=== PATIENT | male | born 1935 | race Caucasian/White ===

== ENCOUNTER → 2020-05-29 | Outpatient (CLI) | payer MEDICARE ==
[2020-05-29 10:18] VITALS: BP 154/67; PULSE 78; RESP 18; TEMP 98.3
--- NOTE | 2020-05-29 10:59 | P.PAINCN ---
History of Present Illness - Reason for Consult Consult date: 05/29/20 - History of Present Illness This is 84 years old male with a chronic history of severe low back pain with radiation to the right lower extremity, started 1 year ago, he denies any initiating event and he reported that the pain interferes with the quality of life and activity of daily livings, is constant and increases with any activity, he denies any motor or sensory deficits, he denies any change in the bowel movements or urination, he denies any fever or night sweats, he had course of oral steroid, and he had short-term benefit, and he tried physical therapy with only minimal benefit. Past Medical History Past Medical History: CVA/TIA, Hearing Disorder / Deafness, Musculoskeletal Disorder Additional Past Medical History / Comment(s): TIA (1999), DDD, PAIN LOWER BACK RADIATES TO RIGHT HIP AND RIGHT LEG., BPH., HEARING AIDS. History of Any Multi-Drug Resistant Organisms: None Reported Past Surgical History: Appendectomy Additional Past Surgical History / Comment(s): LEFT HAND SURGERY, LEILA ROTATOR CUFF SURGERY BILATERAL CATARACTS , CYST REMOVED FROM LEFT FOOT Past Anesthesia/Blood Transfusion Reactions: No Reported Reaction, Motion Sickness Smoking Status: Never smoker - Past Family History Father Family Medical History: Cancer Additional Family Medical History / Comment(s): TESTICULAR CANCER Brother(s) Family Medical History: Cancer Additional Family Medical History / Comment(s): TONGUE CANCER Medications and Allergies Home Medications Medication Instructions Recorded Confirmed Type Clopidogrel [Plavix] 75 mg PO QAM 05/25/14 05/29/20 History Acetaminophen Tab [Tylenol] 1,000 mg pe PO PRN 05/29/20 History Finasteride [Proscar] 5 mg PO DIRECTED 05/29/20 05/29/20 History traMADol HCL [Ultram] 50 mg PO Q4-6H PRN 05/29/20 05/29/20 History Allergies Allergy/AdvReac Type Severity Reaction Status Date / Time No Known Allergies Allergy Verified 05/29/20 10:05 Physical Exam Vitals: Vital Signs Temp Pulse Resp BP Pulse Ox 05/29/20 10:13 98.3 F 78 18 154/67 95 Physical Examinations : -Constitutiona : Cooperative , not in acute distress . -HEENT : nech : supple , no Lymphadenopathy , normal thyroid size . : eyes : no ptosis , no icterus, no photophobia . : ENT : normal of hearing , normal oropharynx , no Thrush . - Respiratory : Chest clear to auscultations Bilaterally , no wheezing , no Rhonchi . - Cardiovascula : regular rate and rhythem , S1 , S2 , no S3 , no S4. - Gastrointestina : abdomen soft no tenderness , bowel sounds , no organomegally . - Genitourinary : Defferred . - neurologic : Cranial nerve II to XII intact , no focal neurological deffecit . -psychatric : alert , oriented X 3 , appropriate affect , intact judgment and insight . -Lymphatic : no Lymphadenopathy . - musculoskeltal : Lumber spine moter stegnth lower extremities ,thigh and legs 5/5 Right side , 5/5 Left side deep tendon reflexes : normal Knee Jerk , normal ankle Jerk lumber facet Loading Test = negative bilaterally Range of motion of the lumbar spine Flexion 30 degrees, extension 10 degrees strait leg raising test = positive at 45 degree Fabere test= negative bilaterally Results Comments: MRI of the lumbar spine= multilevel lumbar bulging disc disease and multilevel lumbar facet arthropathy Assessment and Plan Plan: Assessment and plan=1-lumbar degenerative disc disease. 2-lumbar spondylosis with lumbar facet arthropathy. Patient could benefit from lumbar epidural steroi d injections at L4 5 levels ( right paramedian approach ) Time with Patient: Greater than 30 PQRS Measure Charge Sheet Measure #130: Documentation of Current Meds in Medical Chart: Patient's medications documented in chart Measure #226: Tobacco Use: Screen & Cessation Intervention: Pt not a tobacco user Measure #111: Pneumonia Vaccination: Pneumococcal vaccine NOT administered or previously given Measure #47: Advance Care Plan: Advance care planning discussed & documented, pt chose/unable to give Measure #412: Opioid Treatment Agreement: No documentation of signed opioid treatment agreement Measure #408: Opioid Therapy Follow-up Evaluation: Patient had NO f/u eval minimum every 3 months during opioid therapy Measure #317: Preventitive Care & Scrn High Bld Press & F/U: Pre-hypertensive or hypertensive BP documented, pt will f/u with PCP Measure #128: Body Mass Index (BMI) Screening & Follow-up: BMI documented within normal parameters Measure #131: Pain Assessment & Follow-up: Pain positive & plan documented, Follow-up scheduled Measure #431: Unhealthy Alcohol Use Preventative Care & Scrn: Patient not identified as an unhealthy alcohol user PQRS Narrative: Smoking Status Never smoker Blood Pressure 154/67 Pain Intensity [Lower Back] 8 Scale Used Numeric (1 - 10) Home Medications: Ambulatory Orders Clopidogrel [Plavix] 75 mg PO QAM 05/25/14 Acetaminophen Tab [Tylenol] 1,000 mg pe PO PRN 05/29/20 Finasteride [Proscar] 5 mg PO DIRECTED 05/29/20 traMADol HCL [Ultram] 50 mg PO Q4-6H PRN 05/29/20
== END | disposition home or self-care (01) ==
LOC: PNWHC3 10:03
PROVIDERS: ATTEND Specialist
DX: M51.36 Other intervertebral disc degeneration, lumbar region (principal); M47.816 Spondylosis without myelopathy or radiculopathy, lumbar region; M46.96 Unspecified inflammatory spondylopathy, lumbar region; Z79.899 Other long term (current) drug therapy
CPT/HCPCS: 99211

== ENCOUNTER → 2020-07-09 | Day surgery (SDC) | payer MEDICARE ==
[2020-07-08 11:09] VITALS: BMI 24.5
[~2020-07-09] MED LIST: IOPAMIDOL M200 10 ML VIAL ONE; IV FLUID CONTINUATION 1,000 ML IV ONE; LACTATED RINGERS 1,000 ML IV SCH; MIDAZOLAM 2 MG/2 ML VIAL ONE; fentaNYL (PF) 50 MCG/ML 2 ML AMP ONE; methylPREDNISolone ACETATE 40 MG/ML 1 ML VIAL ONE
[2020-07-09 13:41] VITALS: TEMP 97.4
--- NOTE | 2020-07-09 13:58 | P.PCN ---
Date of Procedure: 07/09/20 Description of Procedure: PREOPERATIVE DIAGNOSIS: 1- Lumbar Degenerative Disc Diseases 2-Lumbar spondylosis with Facet arthropathy without myelopathy POSTOPERATIVE DIAGNOSIS: 1-Lumber Degenerative Disc Diseases 2-Lumbar spondylosis with Facet arthropathy without myelopathy PROCEDURE 1. Lumbar epidural steroid injection under fluoroscopic guidance at the L4-5 level. (Fluoroscopy imaging was available in radiology department) 2. Lumbar epidurogram. ANESTHESIA: Local with 1% lidocaine 3 ml and , moderate sedation with intravenous Versed 1 mg ,and fentanyle 50 Mcg sedation time 11 minutes EBL: Minimal PROCEDURE INDICATION: The patient with low back pain and radiculitis symptoms unresponsive to conservative treatment. Fluoroscopy was used to optimize visualization of the needle placement and to maximize safety. PROCEDURE DESCRIPTION / TECHNIQUE: The patient was seen and identified in the preoperative area. Risks, benefits, complications including but not limited to infections ,bleeding ,allergic reaction to the medications ,nerve damage and not complete pain releife , and alternatives were discussed with the patient. The patient agreed to proceed with the procedure and signed the consent. IV was started, and vital signs were stable. Patient was taken to the OR and time out was completed. The patient was placed in the prone position on procedure table and a pillow was placed under the abdomen to reduce lumbar lordosis. The lumbosacral area was prepped and draped in the usual sterile fashion.ere closely monitored during the procedure. Conscious sedation was used during the procedure to decrease patients anxiety. Vital signs was monitered during the entire procedure. Using anterior-posterior fluoroscopy, the L4-5 interlaminar space was identified and the skin over this site was marked and then infiltrated with 1% lidocaine subcutaneously. Subsequently, a 20-gauge Tuohy epidural needle was inserted and advanced toward the epidural space using the ``Loss of resistance technique and guided by AP and lateral fluoroscopy. The correct needle position in the epidural space was verified with the injection of 2 mL of the water soluble contrast dye Isovue 200 contrast and observing an excellent epidurogram with the epidural spread of the dye, after negative aspiration for blood and CSF and in the absence of paresthesias. Again after negative aspiration, a 6 ml mixture containing 40 mg of Depo-medrol , and 2 ml of preservative free Normal Saline, and 2 ml of preservative free lidocaine 1% solution was injected and a washout of epidurogram was seen. Needle was withdrawn intact, skin was cleansed, and bandages were applied. COMPLICATIONS: None DISPOSITION / PLANS: The patient was placed in a supine position and transferred to the recovery area in a stable condition for observation. There was no evidence of lower extremity motor or sensory deficit after the procedure. Patient was discharged from the recovery room after meeting discharge criteria. Home discharge instructions were given to the patient by the staff. The patient was reexamined prior to discharge. The patient will schedule a follow up in the clinic in 2-4 weeks. Last dose of Plavix was 1 week ago, patient will resume his Plavix tonight.
[2020-07-09 14:12] VITALS: RESP 18
[2020-07-09 14:23] VITALS: BP 126/79; PULSE 82
--- NOTE | 2020-07-11 07:02 | FL ---
EXAMINATION TYPE: FL guided pain mgmt statistic DATE OF EXAM: 07/09/2020 CLINICAL HISTORY: Low back pain. TECHNIQUE: Fluoroscopy. COMPARISON: None. FINDINGS: Fluoroscopic guidance was provided during pain relief procedure performed by Dr. Bernal . A total of 25 seconds of fluoroscopic time was utilized during the procedure and 1 spot images are acquired. Single image acquired shows needle localization with contrast injection roughly L4 level. IMPRESSION: As Above.
== END ==
LOC: ORPAIN 13:22
PROVIDERS: ATTEND Anesthesiology
DX: M51.16 Intervertebral disc disorders with radiculopathy, lumbar region (principal); M47.26 Other spondylosis with radiculopathy, lumbar region; Z79.02 Long term (current) use of antithrombotics/antiplatelets
CPT/HCPCS: 62323; J2250; J1030; J3010; Q9966; 99152

== ENCOUNTER 2021-05-08 16:09 | Emergency (ER) | payer MEDICARE ==
[2021-05-08 16:18] VITALS: BP 116/78; RESP 18; TEMP 98.1
[2021-05-08 17:41] LABS: Basophils # (A) 0.1 k/uL (0-0.2); Basophils % (A) 1 %; Eosinophils # (A) 0.3 k/uL (0-0.7); Eosinophils % (A) 4 %; HCT 45.1 % (39.0-53.0); HGB 15.2 gm/dL (13.0-17.5); Lymphocytes # (A) 2.3 k/uL (1.0-4.8); Lymphocytes % (A) 34 %; MCHC 33.8 g/dL (31.0-37.0); MCV 94.9 fL (80.0-100.0); Mean Platelet Volume 7.3; Monocytes # (A) 0.3 k/uL (0-1.0); Monocytes % (A) 5 %; Neutrophils # (A) 3.6 k/uL (1.3-7.7); Neutrophils % (A) 54 %; Platelet Count 185 k/uL (150-450); RBC 4.76 m/uL (4.30-5.90); RDW 12.5 % (11.5-15.5); WBC 6.6 k/uL (3.8-10.6)
[2021-05-08 17:50] LABS: Partial Thromboplastin Time 25.2 sec (22.0-30.0); Prothrombin Time 10.4 sec (9.0-12.0)
[2021-05-08 17:54] LABS: ALT 16 U/L (4-49); AST 28 U/L (17-59); African American GFR (CKD) >90 (>60 ml/min/1.73 sqM); Albumin 3.9 g/dL (3.5-5.0); Alkaline Phosphatase 65 U/L (38-126); Anion Gap 8 mmol/L; Blood Urea Nitrogen 20 mg/dL (9-20); Carbon Dioxide 25 mmol/L (22-30); Chloride 107 mmol/L (98-107); Glucose 95 mg/dL (74-99); Non-African American GFR(CKD) 84 (>60 ml/min/1.73 sqM); Potassium 4.3 mmol/L (3.5-5.1); Sodium 140 mmol/L (137-145); Total Bilirubin 0.3 mg/dL (0.2-1.3); Total Protein 6.7 g/dL (6.3-8.2)
--- NOTE | 2021-05-08 17:55 | ED ---
General Adult HPI - General Chief complaint: Neuro Symptoms/Deficit Stated complaint: possible stroke, sent from Time Seen by Provider: 05/08/21 16:46 Source: patient Mode of arrival: wheelchair Limitations: no limitations - History of Present Illness Initial comments: 85-year-old male with past history of CVA, low back pain presents emergency Department with acute visual disturbance. He states that he was watching TV last night when he had sudden onset of blindness. He describes it stating that it felt as if a curtain over his eyes. He lost vision in both eyes. States it only lasts about 10 seconds before it spontaneously resolved. No history of similar episodes in the past. He denies any numbness or weakness in his extremities. He had no speech difficulties. No confusion from the patient. Denies any head trauma. No headaches, fevers or chills. No associated nausea or vomiting. No chest pain or shortness of breath. He is not on any blood thinners. No other alleviating, precipitating modifying factors - Related Data Home Medications Medication Instructions Recorded Confirmed Clopidogrel [Plavix] 75 mg PO QAM 05/25/14 05/08/21 Finasteride [Proscar] 5 mg PO Q48H 05/29/20 05/08/21 Allergies Allergy/AdvReac Type Severity Reaction Status Date / Time No Known Allergies Allergy Verified 05/08/21 19:03 Review of Systems ROS Statement: Those systems with pertinent positive or pertinent negative responses have been documented in the HPI. ROS Other: All systems not noted in ROS Statement are negative. Past Medical History Past Medical History: CVA/TIA, Hearing Disorder / Deafness, Musculoskeletal Disorder Additional Past Medical History / Comment(s): TIA (1999), DDD, PAIN LOWER BACK RADIATES TO RIGHT HIP AND RIGHT LEG., BPH., HEARING AIDS. History of Any Multi-Drug Resistant Organisms: None Reported Past Surgical History: Appendectomy, Orthopedic Surgery Additional Past Surgical History / Comment(s): LEFT HAND SURGERY, LEILA ROTATOR CUFF SURGERY, BILATERAL CATARACTS , GANGLION CYST REMOVED FROM LEFT FOOT, EYE STRABISMUS CORRECTION Past Anesthesia/Blood Transfusion Reactions: No Reported Reaction, Motion S ickness Past Psychological History: No Psychological Hx Reported Smoking Status: Never smoker Past Alcohol Use History: None Reported Past Drug Use History: None Reported - Past Family History Father Family Medical History: Cancer Additional Family Medical History / Comment(s): TESTICULAR CANCER Brother(s) Family Medical History: Cancer Additional Family Medical History / Comment(s): TONGUE CANCER General Exam Limitations: no limitations General appearance: alert, in no apparent distress Head exam: Present: atraumatic, normocephalic, normal inspection Eye exam: Present: normal appearance, PERRL, EOMI. Absent: scleral icterus, conjunctival injection, periorbital swelling ENT exam: Present: normal exam, mucous membranes moist Neck exam: Present: normal inspection. Absent: tenderness, meningismus, lymphadenopathy Respiratory exam: Present: normal lung sounds bilaterally. Absent: respiratory distress, wheezes, rales, rhonchi, stridor Cardiovascular Exam: Present: regular rate, normal rhythm, normal heart sounds. Absent: systolic murmur, diastolic murmur, rubs, gallop, clicks GI/Abdominal exam: Present: soft, normal bowel sounds. Absent: distended, tenderness, guarding, rebound, rigid Extremities exam: Present: normal inspection, full ROM, normal capillary refill. Absent: tenderness, pedal edema, joint swelling, calf tenderness Back exam: Present: normal inspection Neurological exam: Present: alert, oriented X3, CN II-XII intact Psychiatric exam: Present: normal affect, normal mood Skin exam: Present: warm, dry, intact, normal color. Absent: rash Course Vital Signs 05/08/21 05/08/21 16:14 19:59 Temperature 98.1 F Pulse Rate 65 58 L Respiratory 18 18 Rate Blood Pressure 116/78 O2 Sat by Pulse 98 98 Oximetry EKG Findings - EKG Comments: EKG Findings:: EKG demonstrates a sinus rhythm with ventricular rate of 62. OR interval 172. QRS 84. QTC of 424. No acute ST segment elevations or depressions concerning for ischemic changes or infarction Medical Decision Making - Medical Decision Making Upon arrival patient is placed into room 20. A thorough history and physical exam is performed. Patient's neuro exam is negative at this time. NIH is 0. Laboratory studies were conducted and the patient went for a CT of her brain. CT angiography is also performed. Laboratory studies are unremarkable. CT of the brain demonstrates no acute intracranial process. CT angiography demonstrates no critical stenosis or dissection. Results are discussed with the patient. I did discuss diagnosis and treatment options. I did recommend hospital admission for neurology consultation and possible MRI however the patient refuses. Daughter is at bedside and agrees to his decision. Patient with follow-up with his primary care physician next week. Return to the emergency department for any new or worsening symptoms. Patient agreed to this and he was discharged home in stable condition - Lab Data Result diagrams: 05/08/21 17:18 05/08/21 17:18 Lab Results 05/08/21 05/08/21 05/08/21 Range/Units 17:18 17:18 17:18 WBC 6.6 (3.8-10.6) k/uL RBC 4.76 (4.30-5.90) m/uL Hgb 15.2 (13.0-17.5) gm/dL Hct 45.1 (39.0-53.0) % MCV 94.9 (80.0-100.0) fL MCH 32.0 (25.0-35.0) pg MCHC 33.8 (31.0-37.0) g/dL RDW 12.5 (11.5-15.5) % Plt Count 185 (150-450) k/uL MPV 7.3 Neutrophils % 54 % Lymphocytes % 34 % Monocytes % 5 % Eosinophils % 4 % Basophils % 1 % Neutrophils # 3.6 (1.3-7.7) k/uL Lymphocytes # 2.3 (1.0-4.8) k/uL Monocytes # 0.3 (0-1.0) k/uL Eosinophils # 0.3 (0-0.7) k/uL Basophils # 0.1 (0-0.2) k/uL PT 10.4 (9.0-12.0) sec INR 1.0 (<1.2) APTT 25.2 (22.0-30.0) sec Sodium 140 (137-145) mmol/L Potassium 4.3 (3.5-5.1) mmol/L Chloride 107 (98-107) mmol/L Carbon Dioxide 25 (22-30) mmol/L Anion Gap 8 mmol/L BUN 20 (9-20) mg/dL Creatinine 0.78 (0.66-1.25) mg/dL Est GFR (CKD-EPI)AfAm >90 (>60 ml/min/1.73 sqM) Est GFR (CKD-EPI)NonAf 84 (>60 ml/min/1.73 sqM) Glucose 95 (74-99) mg/dL Calcium 9.0 (8.4-10.2) mg/dL Total Bilirubin 0.3 (0.2-1.3) mg/dL AST 28 (17-59) U/L ALT 16 (4-49) U/L Alkaline Phosphatase 65 (38-126) U/L Troponin I (0.000-0.034) ng/mL Total Protein 6.7 (6.3-8.2) g/dL Albumin 3.9 (3.5-5.0) g/dL 05/08/21 Range/Units 17:18 WBC (3.8-10.6) k/uL RBC (4.30-5.90) m/uL Hgb (13.0-17.5) gm/dL Hct (39.0-53.0) % MCV (80.0-100.0) fL MCH (25.0-35.0) pg MCHC (31.0-37.0) g/dL RDW (11.5-15.5) % Plt Count (150-450) k/uL MPV Neutrophils % % Lymphocytes % % Monocytes % % Eosinophils % % Basophils % % Neutrophils # (1.3-7.7) k/uL Lymphocytes # (1.0-4.8) k/uL Monocytes # (0-1.0) k/uL Eosinophils # (0-0.7) k/uL Basophils # (0-0.2) k/uL PT (9.0-12.0) sec INR (<1.2) APTT (22.0-30.0) sec Sodium (137-145) mmol/L Potassium (3.5-5.1) mmol/L Chloride (98-107) mmol/L Carbon Dioxide (22-30) mmol/L Anion Gap mmol/L BUN (9-20) mg/dL Creatinine (0.66-1.25) mg/dL Est GFR (CKD-EPI)AfAm (>60 ml/min/1.73 sqM) Est GFR (CKD-EPI)NonAf (>60 ml/min/1.73 sqM) Glucose (74-99) mg/dL Calcium (8.4-10.2) mg/dL Total Bilirubin (0.2-1.3) mg/dL AST (17-59) U/L ALT (4-49) U/L Alkaline Phosphatase (38-126) U/L Troponin I <0.012 (0.000-0.034) ng/mL Total Protein (6.3-8.2) g/dL Albumin (3.5-5.0) g/dL Disposition Clinical Impression: Visual disturbance Disposition: HOME SELF-CARE Condition: Stable Instructions (If sedation given, give patient instructions): Transient Ischemic Attack (ED) Additional Instructions: Please follow up with your PCP in 2-4 days. Taken Aspirin 325 mg daily. You will need to see a neurologist and possibly have an MRI performed. Absolutely return for any new or worsening symptoms. Is patient prescribed a controlled substance at d/c from ED?: No Referrals: Ginny Ontiveros DO [Primary Care Provider] - 1-2 days Time of Disposition: 19:48
--- NOTE | 2021-05-08 18:56 | CT ---
EXAMINATION: CT brain wo con DATE AND TIME: 05/08/2021 6:34 PM CLINICAL INDICATION: PHH; Neuro deficit, acute, stroke suspected TECHNIQUE: Standard departmental protocol Total DLP: 1083.8 mGy-cm COMPARISON: None. FINDINGS: The calvarium is intact. There is no intracranial hemorrhage. There is no intracranial mass or mass effect. No definite new intra-axial or extra-axial attenuation defect. The paranasal sinuses, middle ear cavities, and mastoid sinus air cells are clear. The orbits are unremarkable. IMPRESSION: No acute process.
--- NOTE | 2021-05-08 19:14 | CT ---
EXAMINATION TYPE: CT angio head neck DATE OF EXAM: 05/08/2021 HISTORY: Episode of vision loss yesterday. COMPARISON: CT brain without contrast 05/08/2021 6:[address] DLP: 429.6 mGycm. Automated Exposure Control for Dose Reduction was Utilized. TECHNIQUE: CTA scan of the neck is performed with IV Contrast, patient injected with 65 mL of Isovue 370, axial images are obtained, coronal and sagittal reformatted images are reviewed. Three-D recons tructed images are created on an independent workstation and reviewed. FINDINGS: Carotid/Vascular Structures: The bilateral carotid and vertebral arterial systems are widely patent w ithout hemodynamically significant stenosis or dissection. Intracranial arterial structures: The bilateral anterior and posterior circulation are widely patent and without abnormality. Other: No incidental findings. IMPRESSION: No significant abnormality is seen.
[2021-05-08] MEDS ORDERED: ASPIRIN 325 MG TAB PO STA (19:46)
[2021-05-08 20:00] VITALS: PULSE 58
== END 2021-05-08 20:54 | disposition home or self-care (01) ==
LOC: EC 16:09
DX: H53.9 Unspecified visual disturbance (principal); M54.5 Low back pain; H54.7 Unspecified visual loss; H91.90 Unspecified hearing loss, unspecified ear; Z86.73 Personal history of transient ischemic attack (TIA), and cerebral infarction without residual deficits
CPT/HCPCS: 36415; 93005; 80053; 84484; 85025; 85610; 85730; 70496; 70450; 70498; 99284; Q9967

== ENCOUNTER → 2022-05-12 | Outpatient (CLI) | payer MEDICARE ==
--- NOTE | 2022-05-12 11:11 | CT ---
EXAMINATION TYPE: CT brain wo con CT DLP: 1072.30 mGycm, Automated exposure control for dose reduction was used. DATE OF EXAM: 05/12/2022 10:52 AM COMPARISON: CT brain 05/08/2021, CT head 05/08/2021. CLINICAL INDICATION:Male, 86 years old with history of R42 dizziness and giddiness, TECHNIQUE: Brain: Multiple axial CT images of the brain were obtained without IV contrast. Coronal and sagittal reformats were reviewed. FINDINGS: Brain: Extra-axial spaces: No abnormal extra-axial fluid collections. Ventricular system: Within normal limits Cerebral parenchyma: No acute intraparenchymal hemorrhage or mass effect. The johnson-white junction is well differentiated. Scattered hypoattenuating areas are seen within the periventricular white matte r. Cerebral atrophy. Cerebellum: Unremarkable. Mass effect: No evidence of midline shift. Intracranial vasculature: Atherosclerotic calcifications of the intracranial vessels. Soft tissues: Normal. Calvarium/osseous structures: No depressed skull fracture. Paranasal sinuses and mastoid air cells: Mild scattered paranasal sinus disease. Visualized orbits: Bilateral aphakia IMPRESSION: 1. No acute intracranial process. No significant change from prior examination. 2. Nonspecific white matter changes, likely secondary to chronic small vessel ischemic disease.
== END | disposition home or self-care (01) ==
LOC: RADCTMAIN 09:59
PROVIDERS: ATTEND Family Medicine
DX: R42 Dizziness and giddiness (principal)
CPT/HCPCS: 70450

== ENCOUNTER → 2024-07-28 | Outpatient (CLI) | payer MEDICARE ==
--- NOTE | 2024-07-28 17:15 | MR ---
EXAMINATION TYPE: MR lumbar spine wo con DATE OF EXAM: 07/28/2024 COMPARISON: None HISTORY: Low back pain into right lower extremity, radiculopathy, Prior epidural injections with impr ovement in symptoms TECHNIQUE: Multiplanar, multisequence images of the lumbar spine were acquired without IV contrast. FINDINGS: The lumbar vertebral bodies do have preserved heights. Grade 1 anterolisthesis of L4 on L5 and L5 on S1. No pars defects. Couple of T1/T2 hyperintense hemangioma is identified within the T12 and L1 vertebral bodies. Multilevel anterior osteophytosis. Multilevel disc desiccation is present. The conus medullaris and the distal spinal cord do appear unremarkable with regards to their signal i ntensity and morphology. L1-L2: No significant disc pathology is identified. The spinal canal and neural foramen are patent. L2-L3: No significant disc pathology is identified. The spinal canal and neural foramen are patent. L3-L4: No significant disc pathology is identified. The spinal canal and neural foramen are patent. L4-L5: Grade 1 anterolisthesis with uncovering of the disc. Minimal narrowing of the central canal. L igamentum flavum buckling. Bilateral facet enlargement. Neural canals are minimally narrowed bilater ally. L5-S1: Grade 1 anterolisthesis with uncovering of the disc. No significant central canal stenosis. Fa cet joints are enlarged. Left neural canal is patent. Moderate right neural canal narrowing (series 3 01, image 13). Other significant findings: Thin-walled T2 hyperintense 1.5 cm right renal upper pole exophytic cyst. Bilateral renal sinus cysts. IMPRESSION: 1. No definitive evidence for disc herniation or significant spinal canal stenosis. 2. Multilevel disc degeneration with facet arthropathy. Most pronounced with moderate right neural f oramen narrowing at L5-S1. 3. Grade 1 anterolisthesis at L4 on L5 and L5 on S1 without pars defects. [facility], , 07/28/2024 5:12 PM
== END | disposition home or self-care (01) ==
LOC: RADMRIMAIN 16:02
PROVIDERS: ATTEND Student in an Organized Health Care Education/Training Program
DX: M54.16 Radiculopathy, lumbar region
CPT/HCPCS: 72148